=== PATIENT | male | born 1975 | race Caucasian/White ===

== ENCOUNTER 2016-03-21 12:14 | Emergency (ER) | payer OTHER ==
[~2016-03-21] VITALS: Ht 175.3 cm; Wt 63.6 kg
[~2016-03-21 12:14] MED LIST: DEPAKOTE; DEPAKOTE500 MG PO; IBUPROFEN600 MG PO; ULTRAM50 MG PO
[2016-03-21 13:53] LABS: HEMATOCRIT 41.8 % (38.0-50.0); MCH 30.3 PG (29.0-34.0); MCHC 33.3 G/DL (30.0-36.0); MCV 91.1 FL (86-99); PLATELET COUNT 236 K/uL (156-360); RBC DIS.WIDTH-CV 12.4 % (11.8-14.6); RBC DIS.WIDTH-SD 40.9 % (39-53); RED BLOOD COUNT 4.59 M/uL (4.00-5.50); WHITE BLOOD COUNT 8.4 K/uL (4.1-10.2)
[2016-03-21 14:02] LABS: CHLORIDE 109 mEq/L (99-109); POTASSIUM 4.3 mEq/L (3.7-5.4); SODIUM 139 mEq/L (136-147)
[2016-03-21 14:04] LABS: GLUCOSE 102 mg/dL (70-99)
[2016-03-21 14:05] LABS: ANION GAP 7 MEQ/L (2-14)
[2016-03-21 14:08] LABS: GFR ESTIMATE (CALCULATED) > 59 mL/min/
[2016-03-21 14:09] LABS: UREA NITROGEN (BUN) 16 mg/dL (9-23)
[2016-03-21] MEDS ORDERED: DEPAKOTE500 MG PO (15:30)
[2016-03-21 16:06] VITALS: BP 120/62
== END 2016-03-21 16:07 | disposition home or self-care (01) ==
LOC: EME 12:14
PROVIDERS: Emergency Medicine
DX: G40.909 Epilepsy, unspecified, not intractable, without status epilepticus (principal); S01.511A Laceration without foreign body of lip, initial encounter; S00.03XA Contusion of scalp, initial encounter; W18.30XA Fall on same level, unspecified, initial encounter; Y92.480 Sidewalk as the place of occurrence of the external cause; F17.200 Nicotine dependence, unspecified, uncomplicated
CPT/HCPCS: 80048; 80164; 85027; 93005; 99281; 99284

== ENCOUNTER 2016-04-25 11:25 | Emergency (ER) | payer OTHER ==
[~2016-04-25] VITALS: Ht 175.3 cm; Wt 63.6 kg
[2016-04-25 12:06] LABS: BASOPHIL COUNT 0.1 K/uL (0-0.1); EOSINOPHIL (%) 2.7 % (0-5); EOSINOPHIL COUNT 0.2 K/uL (0-0.3); HEMATOCRIT 41.7 % (38.0-50.0); IMMATURE GRANULOCYTE (%) 0.1 % (0.0-0.7); IMMATURE GRANULOCYTE COUNT 0.1 K/uL; LYMPHOCYTE COUNT 1.3 K/uL (1.0-2.8); MCH 30.8 PG (29.0-34.0); MCHC 33.8 G/DL (30.0-36.0); MEAN PLAT.VOLUME 11.2 uM^3 (9.0-12.4); MONOCYTE (%) 8.5 % (3-12); MONOCYTE COUNT 0.7 K/uL (0-0.8); NEUTROPHIL (%) 72.2 % (45-76); NEUTROPHIL COUNT 5.9 K/uL (1.8-6.4); PLATELET COUNT 200 K/uL (156-360); RBC DIS.WIDTH-CV 12.3 % (11.8-14.6); RED BLOOD COUNT 4.58 M/uL (4.00-5.50); WHITE BLOOD COUNT 8.2 K/uL (4.1-10.2)
[2016-04-25 12:19] LABS: CHLORIDE 108 mEq/L (99-109); SODIUM 145 mEq/L (136-147)
[2016-04-25 12:21] LABS: GLUCOSE 86 mg/dL (70-99)
[2016-04-25 12:22] LABS: ANION GAP 12 MEQ/L (2-14)
[2016-04-25 12:23] LABS: TOTAL BILIRUBIN 0.5 mg/dL (0.0-1.0)
[2016-04-25 12:25] LABS: ALKALINE PHOSPHATASE 61 IU/L (3-129); GFR ESTIMATE (CALCULATED) > 59 mL/min/
[2016-04-25 12:26] LABS: UREA NITROGEN (BUN) 12 mg/dL (9-23)
[2016-04-25 12:28] LABS: CREATINE KINASE 59 IU/L (1-294); TOTAL CK 59 IU/L (1-294)
[2016-04-25 12:34] LABS: CK-MB 1.1 ng/mL (0.0-4.9)
[2016-04-25 17:13] VITALS: BP 128/93
== END 2016-04-25 17:14 | disposition home or self-care (01) ==
LOC: EME 11:25
PROVIDERS: Emergency Medicine
DX: G40.909 Epilepsy, unspecified, not intractable, without status epilepticus (principal); R79.89 Other specified abnormal findings of blood chemistry; S00.91XA Abrasion of unspecified part of head, initial encounter; F17.200 Nicotine dependence, unspecified, uncomplicated
CPT/HCPCS: 70450; 80053; 80164; 82550; 82553; 85025; 93005; 99281; 99284

== ENCOUNTER 2016-10-31 13:02 | Emergency (ER) | payer OTHER ==
[~2016-10-31] VITALS: Ht 175.3 cm; Wt 62.3 kg
[2016-10-31] MEDS ORDERED: DEPAKOTE500 MG PO ×2 (13:16→13:34)
[2016-10-31 14:00] VITALS: BP 121/78
== END 2016-10-31 14:01 | disposition left against medical advice (07) ==
LOC: EME 13:02
DX: G40.909 Epilepsy, unspecified, not intractable, without status epilepticus (principal); Z91.14 Patient's other noncompliance with medication regimen; F17.200 Nicotine dependence, unspecified, uncomplicated
CPT/HCPCS: 99281; 99283

== ENCOUNTER 2017-10-12 12:16 | Emergency (ER) | payer SELFPAY ==
[~2017-10-12] VITALS: Ht 175.3 cm; Wt 62.5 kg
[2017-10-12 13:36] LABS: HEMATOCRIT 41.2 % (38.0-50.0); HEMOGLOBIN 14.2 G/DL (12.5-16.6); MCH 30.5 PG (29.0-34.0); MCHC 34.5 G/DL (30.0-36.0); MCV 88.6 FL (86-99); PLATELET COUNT 240 K/uL (156-360); RBC DIS.WIDTH-CV 12.2 % (11.8-14.6); RBC DIS.WIDTH-SD 39.8 % (39-53); RED BLOOD COUNT 4.65 M/uL (4.00-5.50)
[2017-10-12 13:44] LABS: CHLORIDE 108 mEq/L (99-109); POTASSIUM 4.7 mEq/L (3.7-5.4); SODIUM 142 mEq/L (136-147)
[2017-10-12 13:46] LABS: GLUCOSE 95 mg/dL (70-99)
[2017-10-12] MEDS ORDERED: DEPAKENE250 MG PO (13:48)
[2017-10-12 13:50] LABS: CREATININE 0.8 mg/dL (0.6-1.3); GFR ESTIMATE (CALCULATED) > 59 mL/min/ (58.99-99999); UREA NITROGEN (BUN) 14 mg/dL (9-23)
[2017-10-12 14:04] VITALS: BP 130/85
[2017-10-12 16:11] LABS: VALPROIC ACID (DEPAKOTE) < 10.0 MCG/ML (50-100)
== END 2017-10-12 14:27 | disposition home or self-care (01) ==
LOC: EME 12:16
PROVIDERS: Emergency Medicine
DX: G40.909 Epilepsy, unspecified, not intractable, without status epilepticus (principal); F17.200 Nicotine dependence, unspecified, uncomplicated
CPT/HCPCS: 80048; 80164; 85027; 93005; 99281; 99284